=== PATIENT | male | born 1955 | race Hispanic/Latino ===

== ENCOUNTER 2020-12-16 15:21 | Outpatient (CLI) | payer BC ==
[2020-12-17 06:45] LABS: SARS-CoV-2 PCR by NAA Not Detected (NotDetected)
== END 2020-12-16 15:22 | disposition home or self-care (01) ==
LOC: LABBT 15:21
PROVIDERS: ATTEND Internal Medicine Gastroenterology
DX: Z20.822 Contact with and (suspected) exposure to COVID-19 (principal)
CPT/HCPCS: 87635; U0003; U0005

== ENCOUNTER 2020-12-21 11:14 | Day surgery (SDC) | payer BC ==
[~2020-12-21 11:14] MED LIST: PROPOFOL 200 MG/20 ML VIAL ONE
[2020-12-21] MEDS ORDERED: Fentanyl 100 MCG/2 ML VIAL ONE (13:09)
--- NOTE | 2020-12-21 19:51 | OP ---
DATE OF PROCEDURE: 12/21/2020 PRIMARY CARE PROVIDER: KD Aguilar PROCEDURE PERFORMED: Colonoscopy with snare polypectomy. PREPROCEDURE DIAGNOSES: 1. History of colon polyps. 2. Last colonoscopy five years ago at [facility]. POSTPROCEDURE DIAGNOSES: 1. Exam to cecum; good bowel preparation. 2. Diminutive sessile polyp (5 mm) in the proximal ascending colon, removed by cold snare technique. 3. Diminutive sessile polyp (4 mm) in the distal transverse colon, removed by cold snare technique. 4. Small internal hemorrhoids. 5. Otherwise normal colonoscopy. DESCRIPTION OF PROCEDURE: Written informed consent was obtained. Upon completion of the EGD, the patient was repositioned for the colonoscopy. Total intravenous anesthesia was administered by Elham Love CRNA. The patient was placed in the left lateral decubitus position. A digital rectal exam revealed no abnormalities. A Pentax video colonoscope was inserted through the anal canal and advanced under direct visualization to the cecum. Position in the cecum was verified by clear identification of the appendiceal orifice and the ileocecal valve. The quality of the bowel preparation was good. Each colon segment was examined carefully as the colonoscope was slowly withdrawn from the cecum. In the proximal ascending colon, a small 5 mm sessile polyp was identified and removed by cold snare technique. The tissue was retrieved for histology. Another similar polyp 4 mm in size was identified in the distal transverse colon and removed by cold snare technique. Scattered diverticula were noted in the sigmoid colon. There were no other significant findings. A retroflexed exam in the rectum demonstrated small internal hemorrhoids. The colon was decompressed as the colonoscope was completely removed from the patient. There were no immediate complications. He was transferred to the Day Stay surgery area for postprocedure monitoring. RECOMMENDATIONS: 1. Await pathology results. 2. Ask the patient to call me in one week for pathology results. 3. Repeat colonoscopy in five years. 4. High-fiber diet. 5. Resume previous medications. 6. Follow up in GI clinic as needed. Job ID: [id number]
--- NOTE | 2020-12-21 20:02 | OP ---
DATE OF PROCEDURE: 12/21/2020 PROCEDURE PERFORMED: Esophagogastroduodenoscopy with biopsy. PREPROCEDURE DIAGNOSES: 1. Black stools. 2. Suspected upper gastrointestinal bleeding. POSTPROCEDURE DIAGNOSES: 1. Exam to second portion of duodenum. 2. Normal esophagus. 3. Small submucosal nodule in the gastric body, 5 mm, biopsied. 4. Mild gastric erythema, nonspecific, biopsied. 5. No gastric or duodenal ulcers identified. 6. Normal duodenum. 7. No evidence of upper GI tract bleeding. DESCRIPTION OF PROCEDURE: Written informed consent was obtained. The patient was brought to the endoscopy suite. Total intravenous anesthesia was administered by Ms. Elham Love CRNA. The patient was placed in the left lateral decubitus position. A bite block was inserted into the mouth. A Pentax video diagnostic gastroscope was introduced into the oral cavity, and the esophagus was carefully intubated. The gastroscope was advanced under direct visualization to the second portion of the duodenum. Endoscopic findings revealed a normal-appearing esophagus with no erosions or hiatal hernia. The stomach was then entered and carefully examined. This included a retroflexed view of the cardia and fundus. Mild gastric erythema in a striped pattern was noted in the gastric body. There were no associated ulcers or erosions. Biopsies were obtained for histology. In the gastric body, on the greater curvature, a small submucosal soft nodule about 5 mm in diameter was identified and biopsied. The nodule was soft and pliable when probed with the biopsy forceps. The overlying mucosa was intact. No gastric or duodenal ulcers were identified. The duodenum from the bulb to the second portion appeared normal. A retroflexed exam of the cardia and fundus was also unremarkable. The stomach was decompressed as the endoscope was removed from the patient. He was repositioned for the colonoscopy. There were no immediate complications. RECOMMENDATIONS: 1. Await biopsy results. 2. Ask the patient to call me in one week for biopsy results. 3. Proceed with colonoscopy. Job ID: [id number]
== END 2020-12-21 15:39 | disposition home or self-care (01) ==
LOC: SDC 11:14
PROVIDERS: ATTEND Internal Medicine Gastroenterology
PROC: 0DBL8ZX Excision of Transverse Colon, Via Natural or Artificial Opening Endoscopic, Diagnostic (ICD-10-PCS; principal; 2020-12-21)
PROC: 0DBK8ZX Excision of Ascending Colon, Via Natural or Artificial Opening Endoscopic, Diagnostic (ICD-10-PCS; principal; 2020-12-21)
PROC: 0DB68ZX Excision of Stomach, Via Natural or Artificial Opening Endoscopic, Diagnostic (ICD-10-PCS; principal; 2020-12-21)
DX: Z12.11 Encounter for screening for malignant neoplasm of colon (principal); D12.2 Benign neoplasm of ascending colon; D12.3 Benign neoplasm of transverse colon; K57.30 Diverticulosis of large intestine without perforation or abscess without bleeding; K64.8 Other hemorrhoids; K31.89 Other diseases of stomach and duodenum; Z86.010 Personal history of colon polyps; Z79.84 Long term (current) use of oral hypoglycemic drugs; Z79.899 Other long term (current) drug therapy; Z88.0 Allergy status to penicillin
CPT/HCPCS: 88305; J2704; J3010

== ENCOUNTER 2023-01-17 13:11 | Outpatient (CLI) | payer MEDICARE, BC ==
[2023-01-17] MEDS ORDERED: Magnevist 469MG/ML 20 ML VIAL ONE (17:35)
== END 2023-01-17 13:12 | disposition home or self-care (01) ==
LOC: MRI 13:11
PROVIDERS: ATTEND Family Medicine
DX: R41.3 Other amnesia (principal)
CPT/HCPCS: 70553; A9579